=== PATIENT | female | born 1950 | race Caucasian/White ===

== ENCOUNTER → 2019-08-09 | Outpatient (CLI) | payer OTHER ==
[~2019-08-09] MED LIST: MINERAL OIL MC; MULTIVITAMIN1 CAP PO; ORPH100T PO; PERCOCET 5/321 UDTAB PO; SUPER B COMPLEX1 TA2 PO
== END | disposition home or self-care (01) ==
LOC: RAD 10:19
DX: M41.55 Other secondary scoliosis, thoracolumbar region (principal); M54.5 Low back pain; M54.2 Cervicalgia

== ENCOUNTER 2019-08-15 11:40 | Outpatient (CLI) | payer OTHER | END 2019-08-15 11:42 | disposition home or self-care (01) | LOC: RAD 11:40 | DX: J45.20 Mild intermittent asthma, uncomplicated (principal); R05 Cough ==

== ENCOUNTER 2019-08-16 09:56 | Outpatient (CLI) | payer OTHER | END 2019-08-16 10:07 | disposition home or self-care (01) | LOC: NUCLEAR 09:56 | DX: M54.5 Low back pain (principal) | CPT/HCPCS: 78315; A9503 ==

== ENCOUNTER 2019-08-27 08:14 | Outpatient (CLI) | payer OTHER | END 2019-08-27 08:16 | disposition home or self-care (01) | LOC: SONOGRAMA 08:14 | DX: I70.0 Atherosclerosis of aorta (principal) ==

== ENCOUNTER 2019-08-30 09:39 | Outpatient (CLI) | payer OTHER | END 2019-08-30 09:41 | disposition home or self-care (01) | LOC: NUCLEAR 09:39 | DX: R01.1 Cardiac murmur, unspecified (principal); I10 Essential (primary) hypertension ==

== ENCOUNTER 2022-02-17 11:54 | Outpatient (CLI) | payer OTHER | END 2022-02-17 12:07 | disposition home or self-care (01) | LOC: MRI 11:54 → NUCLEAR 13:15 | PROVIDERS: ATTEND Physical Medicine & Rehabilitation | DX: M54.12 Radiculopathy, cervical region (principal) | CPT/HCPCS: 72141 ==

== ENCOUNTER 2022-02-17 13:52 | Outpatient (CLI) | payer OTHER | END 2022-02-17 13:53 | disposition home or self-care (01) | LOC: NUCLEAR 13:52 | PROVIDERS: ATTEND Specialist | DX: M85.80 Other specified disorders of bone density and structure, unspecified site (principal) ==

== ENCOUNTER 2022-04-17 10:56 | Emergency (ER) | payer OTHER ==
[~2022-04-17] VITALS: Ht 165.1 cm; Wt 60.3 kg
== END 2022-04-17 15:22 | disposition home or self-care (01) ==
LOC: ER 10:56
DX: K29.70 Gastritis, unspecified, without bleeding (principal); R07.89 Other chest pain; R10.816 Epigastric abdominal tenderness; R11.0 Nausea; Z20.822 Contact with and (suspected) exposure to COVID-19; Z88.6 Allergy status to analgesic agent; Z88.8 Allergy status to other drugs, medicaments and biological substances

== ENCOUNTER 2022-05-23 11:59 | Emergency (ER) | payer OTHER ==
[~2022-05-23] VITALS: Ht 165.1 cm; Wt 59.0 kg
== END 2022-05-23 16:08 | disposition home or self-care (01) ==
LOC: ER 11:59
DX: U07.1 COVID-19 (principal); Z88.6 Allergy status to analgesic agent; Z91.018 Allergy to other foods

== ENCOUNTER 2022-08-12 10:50 | Emergency (ER) | payer OTHER ==
[~2022-08-12] VITALS: Ht 165.1 cm; Wt 59.9 kg
[2022-08-12] MEDS ORDERED: ENALAPRIL MALEAT5 MG PO (14:17)
== END 2022-08-12 14:29 | disposition home or self-care (01) ==
LOC: ER
DX: R07.89 Other chest pain (principal); I10 Essential (primary) hypertension; Z88.6 Allergy status to analgesic agent; Z91.010 Allergy to peanuts; Z88.8 Allergy status to other drugs, medicaments and biological substances; Z91.018 Allergy to other foods; Z20.822 Contact with and (suspected) exposure to COVID-19

== ENCOUNTER 2023-11-06 15:38 | Outpatient (CLI) | payer OTHER ==
[~2023-11-06 15:38] MED LIST changes: +ENALAPRIL MALEAT5 MG PO
== END 2023-11-06 15:53 | disposition home or self-care (01) ==
LOC: MRI 15:38
PROVIDERS: ATTEND Physical Medicine & Rehabilitation
DX: M54.12 Radiculopathy, cervical region (principal)
CPT/HCPCS: 72141

== ENCOUNTER 2023-11-10 10:05 | Outpatient (CLI) | payer OTHER | END 2023-11-10 10:06 | disposition home or self-care (01) | LOC: NUCLEAR 10:05 | PROVIDERS: ATTEND Physical Medicine & Rehabilitation | DX: I87.2 Venous insufficiency (chronic) (peripheral) (principal) ==